=== PATIENT | male | born 1945 | race Caucasian/White ===

== ENCOUNTER 2016-12-30 11:49 | Emergency (ER) | payer OTHER ==
[~2016-12-30] VITALS: Ht 180.3 cm; Wt 76.2 kg
[~2016-12-30 11:49] MED LIST: COLCRYS0.6 MG PO; ESCITALOPRAM OX10 MG PO; INDOMETHACIN25 MG PO; KLONOPIN0.5 M1 PO; OMEPRAZOLE20 MG PO; QUETIAPINE FUMA25 MG PO
[2016-12-30 14:52] LABS: HEMATOCRIT 46.9 % (38.0-50.0); MCH 31.8 PG (29.0-34.0); MCHC 35.2 G/DL (30.0-36.0); MCV 90.4 FL (86-99); MEAN PLAT.VOLUME 10.4 uM^3 (9.0-12.4); PLATELET COUNT 366 K/uL (156-360); RBC DIS.WIDTH-CV 11.6 % (11.8-14.6); RBC DIS.WIDTH-SD 38.5 % (39-53); RED BLOOD COUNT 5.19 M/uL (4.00-5.50); WHITE BLOOD COUNT 12.3 K/uL (4.1-10.2)
[2016-12-30 14:53] LABS: INTER. NORMALIZED RATIO 1.2; PROTHROMBIN TIME 13.4 SEC (10.2-12.9)
[2016-12-30 14:55] LABS: PTT 30.9 SEC (25-37)
[2016-12-30 14:56] LABS: CHLORIDE 100 mEq/L (99-109); POTASSIUM 4.5 mEq/L (3.7-5.4); SODIUM 136 mEq/L (136-147)
[2016-12-30 14:58] LABS: GLUCOSE 102 mg/dL (70-99)
[2016-12-30 14:59] LABS: ANION GAP 15 MEQ/L (2-14)
[2016-12-30 15:00] LABS: TOTAL BILIRUBIN 0.6 mg/dL (0.0-1.0)
[2016-12-30 15:01] LABS: ALKALINE PHOSPHATASE 115 IU/L (3-129)
[2016-12-30 15:02] LABS: GFR ESTIMATE (CALCULATED) > 59 mL/min/
[2016-12-30 15:07] LABS: UREA NITROGEN (BUN) 44 mg/dL (9-23)
[2016-12-30] MEDS ORDERED: FLAGYL500 MG PO (15:42)
[2016-12-30] MEDS ORDERED: CIPRO500 MG PO (15:42)
[2016-12-30] MEDS ORDERED: PERCOCET 5/31 TABLET PO (15:50)
[2016-12-30 16:00] VITALS: BP 114/73
== END 2016-12-30 16:00 | disposition home or self-care (01) ==
LOC: EME 11:49
PROVIDERS: Emergency Medicine
DX: K62.5 Hemorrhage of anus and rectum (principal); S31.119A Laceration without foreign body of abdominal wall, unspecified quadrant without penetration into peritoneal cavity, initial encounter; X58.XXXA Exposure to other specified factors, initial encounter; Z93.2 Ileostomy status; Z90.49 Acquired absence of other specified parts of digestive tract; Z87.19 Personal history of other diseases of the digestive system
CPT/HCPCS: 80053; 83605; 85027; 85610; 85730; 86850; 86900; 86901; 99281; 99285